=== PATIENT | male | born 1980 | race Two or more races ===

== ENCOUNTER → 2023-07-19 | Day surgery (SDC) | payer OTHER ==
[~2023-07-19] VITALS: Ht 175.3 cm; Wt 89.8 kg
[~2023-07-19] MED LIST: LIDOCAINE 1% INJ PF 5ML AMP ONE; LIDOCAINE 2% (LOCAL ANESTH.) PF 5ml SDV ONE; PROPOFOL 10 MG/ML 20 ML IV ONE
[2023-07-19 10:41] VITALS: TEMP 99
[2023-07-19 11:20] VITALS: BP 108/75; PULSE 62; RESP 10; O2SAT 98
== END | disposition home or self-care (01) ==
LOC: GI 08:41 → EEVIPCON 09:45
PROVIDERS: ATTEND Internal Medicine Gastroenterology
DX: K59.00 Constipation, unspecified (principal); K64.8 Other hemorrhoids; R10.13 Epigastric pain; K29.50 Unspecified chronic gastritis without bleeding; K25.9 Gastric ulcer, unspecified as acute or chronic, without hemorrhage or perforation; J45.909 Unspecified asthma, uncomplicated
CPT/HCPCS: 43239; 45378; J2001; J2704; J7030